=== PATIENT | male | born 1940 | race Caucasian/White ===

== ENCOUNTER 2020-03-29 05:22 | Emergency (ER) | payer MEDICARE ==
[~2020-03-29] VITALS: Ht 177.8 cm; Wt 78.0 kg
== END 2020-03-29 06:35 | disposition home or self-care (01) ==
LOC: ED 05:22
DX: S00.93XA Contusion of unspecified part of head, initial encounter (principal); R42 Dizziness and giddiness; E78.00 Pure hypercholesterolemia, unspecified; I48.91 Unspecified atrial fibrillation; Z88.0 Allergy status to penicillin; W19.XXXA Unspecified fall, initial encounter; Y93.89 Activity, other specified; Y92.89 Other specified places as the place of occurrence of the external cause; Y99.8 Other external cause status